=== PATIENT | male | born 1975 | race Caucasian/White ===

== ENCOUNTER 2022-03-18 15:55 | Inpatient (IN) | payer OTHER, MEDICAID ==
[~2022-03-18] VITALS: Ht 177.8 cm; Wt 54.0 kg
[2022-03-18 15:55] VITALS: BP_SYST 103
[2022-03-18] MEDS ORDERED: levETIRAcetam 500 MG TABLET PO ONE (16:15)
[2022-03-18] MEDS ORDERED: LORazepam 1 MG TABLET PO ONE (16:15)
[2022-03-18] MEDS ORDERED: LORazepam 2 MG/ML VIAL ONE (16:41)
[2022-03-18 17:11] LABS: BASOPHILS % (AUTO) 0.3 % (0.0-2.0); EOSINOPHILS # (AUTO) 0.1 K/uL (0.0-0.4); EOSINOPHILS % (AUTO) 0.6 % (0.0-4.0); HEMATOCRIT 38.9 % (36-54); HEMOGLOBIN 12.7 g/dL (14.0-18.0); LYMPHOCYTES # (AUTO) 2.3 K/uL (1.0-5.5); LYMPHOCYTES % (AUTO) 16.3 % (20.5-51.5); MEAN CORPUSCULAR HEMOGLOBIN 31 pg (27-31); MEAN CORPUSCULAR HGB CONC 33 % (32-36); MEAN CORPUSCULAR VOLUME 94 fL (79.0-98.0); MONOCYTES # (AUTO) 1.1 K/uL (0.0-1.0); NEUTROPHILS # (AUTO) 10.6 K/uL (1.8-7.7); NEUTROPHILS % (AUTO) 74.8 % (40.0-70.0); PLATELET COUNT (AUTO) 327 K/uL (130-430); RED BLOOD CELL COUNT(AUTO) 4.13 MIL/uL (4.2-6.2); RED CELL DISTRIBUTION WIDTH 15.4 % (9.0-15.0); WHITE BLOOD COUNT (AUTO) 14.2 K/uL (4.8-10.8)
[2022-03-18 17:32] LABS: CALCIUM 9.4 mg/dL (8.4-11.0); CREATININE 0.86 mg/dL (0.55-1.30)
[2022-03-18 17:42] LABS: ALBUMIN 3.3 g/dL (3.4-4.8); TOTAL BILIRUBIN 0.3 mg/dL (0.0-1.0)
[2022-03-18] MEDS ORDERED: SENN8.6T19 PO (18:55)
[2022-03-18] MEDS ORDERED: D5/0.45 NS 1,000 ML IV ONE (19:00)
[2022-03-19] MEDS ORDERED: ACETAMINOPHEN 650 MG SUPP.RECT RC ONE (04:00)
[2022-03-19 08:50] VITALS: BP_SYST 107
[2022-03-19] MEDS ORDERED: ACET325T53 GT (10:36)
[2022-03-19] MEDS ORDERED: LEVE250T2 GT (10:36)
[2022-03-19] MEDS ORDERED: IPRA4AER INH (10:36)
[2022-03-19] MEDS ORDERED: ASCO120G2 MC (10:36)
[2022-03-19] MEDS ORDERED: FERR236T3 GT (10:36)
[2022-03-19] MEDS ORDERED: PHEN30TA49 GT (10:36)
[2022-03-19] MEDS ORDERED: LEVO25TA7 GT (10:36)
[2022-03-19 12:00] VITALS: BP_SYST 111
[2022-03-19] MEDS ORDERED: ACETAMINOPHEN 325 MG TABLET GT PRN ×2 (12:15→12:30)
[2022-03-19] MEDS ORDERED: IPRATROPIUM/ALBUTEROL SULFATE 120 PUFFS/4 GM INH INH PRN (12:15)
[2022-03-19] MEDS ORDERED: ONDANSETRON HCL 4 MG/2 ML VIAL IVP PRN (12:15)
[2022-03-19] MEDS: D5/0.45 NS 1,000 ML IV SCH ×2 (13:08→22:15)
[2022-03-19] MEDS ORDERED: IPRATROPIUM/ALBUTEROL SULFATE 3 ML AMPUL.NEB (DUONEB) INH PRN (13:45)
[2022-03-19 13:47] VITALS: BP_SYST 107
[2022-03-19] MEDS ORDERED: levETIRAcetam 500 MG TABLET GT SCH (15:00)
[2022-03-19 16:10] VITALS: BP_SYST 111
[2022-03-19] MEDS: PHENobarbital 30 MG TABLET GT SCH (21:38)
[2022-03-19] MEDS: LevETIRAcetam 500 MG/5 ML UDC ORAL LIQUID GT SCH (21:38)
[2022-03-20 00:49] VITALS: BP_SYST 103
[2022-03-20 04:00] VITALS: BP_SYST 97
[2022-03-20 06:53] LABS: BASOPHILS % (AUTO) 0.1 % (0.0-2.0); EOSINOPHILS # (AUTO) 0.1 K/uL (0.0-0.4); EOSINOPHILS % (AUTO) 0.6 % (0.0-4.0); HEMATOCRIT 31.8 % (36-54); HEMOGLOBIN 10.6 g/dL (14.0-18.0); LYMPHOCYTES # (AUTO) 1.4 K/uL (1.0-5.5); LYMPHOCYTES % (AUTO) 11.8 % (20.5-51.5); MEAN CORPUSCULAR HEMOGLOBIN 31 pg (27-31); MEAN CORPUSCULAR HGB CONC 33 % (32-36); MEAN CORPUSCULAR VOLUME 93 fL (79.0-98.0); MONOCYTES # (AUTO) 0.9 K/uL (0.0-1.0); MONOCYTES % (AUTO) 7.5 % (1.7-9.3); NEUTROPHILS # (AUTO) 9.5 K/uL (1.8-7.7); PLATELET COUNT (AUTO) 235 K/uL (130-430); RED BLOOD CELL COUNT(AUTO) 3.43 MIL/uL (4.2-6.2); WHITE BLOOD COUNT (AUTO) 11.9 K/uL (4.8-10.8)
[2022-03-20 07:57] LABS: ALBUMIN 2.6 g/dL (3.4-4.8); CALCIUM 8.8 mg/dL (8.4-11.0); CREATININE 0.75 mg/dL (0.55-1.30); PHOSPHORUS 2.3 mg/dL (2.7-4.5); TOTAL BILIRUBIN 0.5 mg/dL (0.0-1.0)
[2022-03-20 08:00] VITALS: BP_SYST 97
[2022-03-20] MEDS: D5/0.45 NS 1,000 ML IV SCH ×2 (08:00→08:27)
[2022-03-20] MEDS: ASCORBIC ACID 500 MG TABLET GT SCH (08:25)
[2022-03-20] MEDS: PHENobarbital 30 MG TABLET GT SCH ×2 (08:25→22:53)
[2022-03-20] MEDS: FERROUS GLUCONATE 324 MG TABLET GT SCH (08:25)
[2022-03-20] MEDS: SENNOSIDES 8.6 MG TABLET PO SCH (08:25)
[2022-03-20] MEDS: LevETIRAcetam 500 MG/5 ML UDC ORAL LIQUID GT SCH ×2 (08:26→22:52)
[2022-03-20] MEDS ORDERED: FERROUS GLUCONATE GT SCH (09:00)
[2022-03-20] MEDS ORDERED: K PHOS 15 MM in NS 250 ML IV ONE (11:00)
[2022-03-20 11:40] VITALS: BP_SYST 125
[2022-03-20 15:40] VITALS: BP_SYST 102
[2022-03-20 20:00] VITALS: BP_SYST 107; BP_SYST 116
[2022-03-21] MEDS: LEVOTHYROXINE SODIUM 0.025 MG TABLET GT SCH (07:00)
[2022-03-21 08:02] VITALS: BP_SYST 120
[2022-03-21] MEDS: FERROUS GLUCONATE 324 MG TABLET GT SCH (09:47)
[2022-03-21] MEDS: PHENobarbital 30 MG TABLET GT SCH ×2 (09:47→21:47)
[2022-03-21] MEDS: LevETIRAcetam 500 MG/5 ML UDC ORAL LIQUID GT SCH ×2 (09:56→21:47)
[2022-03-21] MEDS: SENNOSIDES 8.6 MG TABLET PO SCH (10:05)
[2022-03-21] MEDS: ASCORBIC ACID 500 MG TABLET GT SCH (10:06)
[2022-03-21 11:47] VITALS: BP_SYST 108
[2022-03-21] MEDS ORDERED: LEVE100S GT (12:11)
[2022-03-21] MEDS: D5/0.45 NS 1,000 ML IV SCH ×2 (14:15→19:20)
[2022-03-21 14:23] LABS: BASOPHILS % (AUTO) 0.1 % (0.0-2.0); EOSINOPHILS # (AUTO) 0.1 K/uL (0.0-0.4); EOSINOPHILS % (AUTO) 1.8 % (0.0-4.0); HEMATOCRIT 29.6 % (36-54); HEMOGLOBIN 10.2 g/dL (14.0-18.0); LYMPHOCYTES # (AUTO) 0.7 K/uL (1.0-5.5); LYMPHOCYTES % (AUTO) 8.5 % (20.5-51.5); MEAN CORPUSCULAR HEMOGLOBIN 31 pg (27-31); MEAN CORPUSCULAR HGB CONC 34 % (32-36); MONOCYTES # (AUTO) 0.7 K/uL (0.0-1.0); MONOCYTES % (AUTO) 8.2 % (1.7-9.3); NEUTROPHILS # (AUTO) 6.9 K/uL (1.8-7.7); NEUTROPHILS % (AUTO) 81.4 % (40.0-70.0); PLATELET COUNT (AUTO) 239 K/uL (130-430); RED BLOOD CELL COUNT(AUTO) 3.25 MIL/uL (4.2-6.2); WHITE BLOOD COUNT (AUTO) 8.5 K/uL (4.8-10.8)
[2022-03-21 14:24] LABS: MEAN CORPUSCULAR VOLUME 91 fL (79.0-98.0)
[2022-03-21 14:32] LABS: CALCIUM 8.8 mg/dL (8.4-11.0); CREATININE 0.68 mg/dL (0.55-1.30)
[2022-03-21 15:09] LABS: ERYTHROCYTE SEDIMENTATION RATE 97 MM/HR (0-15)
[2022-03-21 15:18] VITALS: BP_SYST 102
[2022-03-21 15:56] LABS: C-REACTIVE PROTEIN QUANT 21.6 mg/dL (0-0.5)
[2022-03-21] MEDS ORDERED: POTASSIUM CHLORIDE 40 MEQ in NS 250 ML IV ONE (18:00)
[2022-03-21 21:29] VITALS: BP_SYST 123
[2022-03-21] MEDS: DOXYCYCLINE HYCLATE 100 MG in D5W 100 ML IV SCH (21:48)
[2022-03-22 01:29] VITALS: BP_SYST 116
[2022-03-22] MEDS: LEVOTHYROXINE SODIUM 0.025 MG TABLET GT SCH (06:54)
[2022-03-22] MEDS: D5/0.45 NS 1,000 ML IV SCH ×2 (06:56→17:31)
[2022-03-22 07:35] LABS: C-REACTIVE PROTEIN QUANT 14.4 mg/dL (0-0.5); CALCIUM 8.8 mg/dL (8.4-11.0); CREATININE 0.6 mg/dL (0.55-1.30)
[2022-03-22 07:41] LABS: BASOPHILS % (AUTO) 0.2 % (0.0-2.0); EOSINOPHILS # (AUTO) 0.2 K/uL (0.0-0.4); EOSINOPHILS % (AUTO) 3.6 % (0.0-4.0); HEMATOCRIT 30.3 % (36-54); HEMOGLOBIN 10.2 g/dL (14.0-18.0); LYMPHOCYTES # (AUTO) 1.4 K/uL (1.0-5.5); LYMPHOCYTES % (AUTO) 32.1 % (20.5-51.5); MEAN CORPUSCULAR HEMOGLOBIN 31 pg (27-31); MEAN CORPUSCULAR HGB CONC 34 % (32-36); MEAN CORPUSCULAR VOLUME 93 fL (79.0-98.0); MONOCYTES # (AUTO) 0.6 K/uL (0.0-1.0); MONOCYTES % (AUTO) 14.7 % (1.7-9.3); NEUTROPHILS # (AUTO) 2.1 K/uL (1.8-7.7); NEUTROPHILS % (AUTO) 49.4 % (40.0-70.0); PLATELET COUNT (AUTO) 222 K/uL (130-430); RED BLOOD CELL COUNT(AUTO) 3.26 MIL/uL (4.2-6.2); RED CELL DISTRIBUTION WIDTH 14.9 % (9.0-15.0)
[2022-03-22 08:06] VITALS: BP_SYST 124
[2022-03-22 08:32] LABS: WHITE BLOOD COUNT (AUTO) 4.3 K/uL (4.8-10.8)
[2022-03-22] MEDS: SENNOSIDES 8.6 MG TABLET PO SCH (09:23)
[2022-03-22] MEDS: FERROUS GLUCONATE 324 MG TABLET GT SCH (09:23)
[2022-03-22] MEDS: ASCORBIC ACID 500 MG TABLET GT SCH (09:23)
[2022-03-22] MEDS: PHENobarbital 30 MG TABLET GT SCH ×2 (09:24→20:50)
[2022-03-22] MEDS: DOXYCYCLINE HYCLATE 100 MG in D5W 100 ML IV SCH ×2 (09:24→20:50)
[2022-03-22] MEDS: LevETIRAcetam 500 MG/5 ML UDC ORAL LIQUID GT SCH ×2 (09:24→20:49)
[2022-03-22 09:30] LABS: ERYTHROCYTE SEDIMENTATION RATE 98 MM/HR (0-15)
[2022-03-22 10:20] LABS: BILIRUBIN,URINE NEGATIVE (NEGATIVE); CLARITY/URINE SL CLOUDY (CLEAR); COLOR,URINE YELLOW (YELLOW); GLUCOSE,URINE NEGATIVE (NEGATIVE); KETONES,URINE NEGATIVE (NEGATIVE); LEUKOCYTE ESTERASE ,URINE 3+ (NEGATIVE); NITRITE, URINE POSITIVE (NEGATIVE); PH,URINE 6.5 (5.0-8.0); PROTEIN URINE NEGATIVE (NEGATIVE); UROBILINOGEN,URINE 0.2 (0.2-1.0)
[2022-03-22 10:22] LABS: BLOOD, URINE TRACE (NEGATIVE)
[2022-03-22 10:27] LABS: BACTERIA,URINE FEW /HPF (None Seen); MUCUS,URINE None Seen /LPF (None Seen); RBC,URINE 0-3 /HPF (0-3); WBC,URINE 20-50 /HPF (0-3)
[2022-03-22] MEDS ORDERED: DOXY100T2 GT (10:27)
[2022-03-22 11:47] VITALS: BP_SYST 109
[2022-03-22 16:38] VITALS: BP_SYST 112
[2022-03-22 19:00] VITALS: BP_SYST 118
[2022-03-22 20:00] VITALS: BP_SYST 118
[2022-03-23] MEDS: D5/0.45 NS 1,000 ML IV SCH (05:13)
[2022-03-23] MEDS: LEVOTHYROXINE SODIUM 0.025 MG TABLET GT SCH (05:13)
[2022-03-23 07:17] LABS: BASOPHILS % (AUTO) 0.2 % (0.0-2.0); EOSINOPHILS # (AUTO) 0.2 K/uL (0.0-0.4); EOSINOPHILS % (AUTO) 4.3 % (0.0-4.0); HEMATOCRIT 29.6 % (36-54); HEMOGLOBIN 9.9 g/dL (14.0-18.0); LYMPHOCYTES # (AUTO) 1.2 K/uL (1.0-5.5); LYMPHOCYTES % (AUTO) 25.8 % (20.5-51.5); MEAN CORPUSCULAR HEMOGLOBIN 31 pg (27-31); MEAN CORPUSCULAR HGB CONC 34 % (32-36); MEAN CORPUSCULAR VOLUME 92 fL (79.0-98.0); MONOCYTES # (AUTO) 0.5 K/uL (0.0-1.0); MONOCYTES % (AUTO) 11.9 % (1.7-9.3); NEUTROPHILS # (AUTO) 2.6 K/uL (1.8-7.7); NEUTROPHILS % (AUTO) 57.8 % (40.0-70.0); PLATELET COUNT (AUTO) 234 K/uL (130-430); RED BLOOD CELL COUNT(AUTO) 3.21 MIL/uL (4.2-6.2); RED CELL DISTRIBUTION WIDTH 15.2 % (9.0-15.0); WHITE BLOOD COUNT (AUTO) 4.5 K/uL (4.8-10.8)
[2022-03-23 08:21] LABS: ALBUMIN 2.5 g/dL (3.4-4.8); CALCIUM 8.6 mg/dL (8.4-11.0); CREATININE 0.57 mg/dL (0.55-1.30); TOTAL BILIRUBIN 0.2 mg/dL (0.0-1.0)
[2022-03-23 08:25] VITALS: BP_SYST 130
[2022-03-23] MEDS: SENNOSIDES 8.6 MG TABLET PO SCH (08:37)
[2022-03-23] MEDS: ASCORBIC ACID 500 MG TABLET GT SCH (08:37)
[2022-03-23] MEDS: LevETIRAcetam 500 MG/5 ML UDC ORAL LIQUID GT SCH (08:37)
[2022-03-23] MEDS: FERROUS GLUCONATE 324 MG TABLET GT SCH (08:37)
[2022-03-23] MEDS: PHENobarbital 30 MG TABLET GT SCH (08:37)
[2022-03-23] MEDS: DOXYCYCLINE HYCLATE 100 MG in D5W 100 ML IV SCH (08:38)
[2022-03-23 12:35] LABS: ERYTHROCYTE SEDIMENTATION RATE 94 MM/HR (0-15)
[2022-03-23 13:15] VITALS: BP_SYST 98
[2022-03-23] MEDS ORDERED: NORMAL SALINE 5 ML DISP.SYRIN IVF SCH (14:00)
== END 2022-03-23 15:25 | DRG 871 ==
LOC: SED 15:55 → STU 18:49
PROVIDERS: ADMIT Family Medicine; ATTEND Preventive Medicine Preventive Medicine/Occupational Environmental Medicine
DX: A41.9 Sepsis, unspecified organism (principal); J96.00 Acute respiratory failure, unspecified whether with hypoxia or hypercapnia; E87.20 Acidosis, unspecified; N39.0 Urinary tract infection, site not specified; D64.9 Anemia, unspecified; E87.6 Hypokalemia; E88.09 Other disorders of plasma-protein metabolism, not elsewhere classified; G80.9 Cerebral palsy, unspecified; R73.9 Hyperglycemia, unspecified; E83.39 Other disorders of phosphorus metabolism; B96.89 Other specified bacterial agents as the cause of diseases classified elsewhere; Z20.822 Contact with and (suspected) exposure to COVID-19; G40.409 Other generalized epilepsy and epileptic syndromes, not intractable, without status epilepticus; D72.829 Elevated white blood cell count, unspecified; R13.10 Dysphagia, unspecified; Z88.1 Allergy status to other antibiotic agents; Z88.0 Allergy status to penicillin; Z88.8 Allergy status to other drugs, medicaments and biological substances; Z79.899 Other long term (current) drug therapy
CPT/HCPCS: 36415; 70450-TC; 71045; 76376; 80048; 80053; 80184; 81000; 83605; 83735; 84100; 85025; 85651-TC; 86140; 87040; 87081; 87086; 96360; 99285; G0378; J2060; J3480; J3490; J7030; J7050; J7060